=== PATIENT | male | born 1985 ===

== ENCOUNTER 2016-11-03 09:19 | Emergency (ER) | payer SELFPAY ==
[2016-11-03] MEDS ORDERED: KETOROLAC TROMETHAMINE 60 MG/2 ML VIAL IM ONE ×2 (10:44)
--- NOTE | 2016-11-03 10:51 | ERNOTE ---
Medical Problem HPI - Narrative Date of Service: 11/03/16 - General Chief Complaint: General Assessment Time Seen by Provider: 11/03/16 10:30 Source: patient, police, RN notes reviewed Exam Limitations: no limitations - Immun/Allergies/Home Medications Immunizations: IMMUNIZATION HX Immunizations Up to Date Yes History of Influenza Vaccine Yes Hx Pneumococcal Vaccination No Allergies/Adverse Reactions: Allergies No Known Allergies Allergy (Verified 11/03/16 09:32) Home Medications: HOME MEDICATIONS Ibuprofen [Motrin] 600 mg PO Q6H PRN #40 tab 11/03/16 [Last Taken Unknown] traMADol HCL [Ultram] 50 mg PO Q6H PRN #16 tablet 11/03/16 [Last Taken Unknown] - History of Present History Narrative: 31 y/o male to ED in police custody for left rib and left ankle pain. He was arrested for trespassing. He injured his ribs while being put into the squad car. He reports having a left rib fractures approx 8 mos ago, which had gotten better but are now very painful. He injured the ankle while running from the police. He states that it just feels twisted but not broken. He requested that the [facility] officer take him to [facility] because he has had bad experiences here. Review of Systems - Review of Systems Constitutional: Absent: recent illness, fever, chills EYE: Present: no symptoms reported ENT: Present: no symptoms reported Respiratory: Absent: shortness of breath, cough, wheezing Cardiology: Absent: palpitations, syncope Gastrointestinal/Abdominal: Present: no symptoms reported Genitourinary: Present: no symptoms reported Musculoskeletal: Present: back pain, joint pain. Absent: neck pain, joint swelling Skin: Absent: lesions, lumps, change in color Neurological: Absent: weakness, numbness, tingling Endocrine: Present: no symptoms reported Hematologic/Lymphatic: Present: no symptoms reported Psych: Present: no symptoms reported - Patient's Past Medical History Patient History - Medical: No pertinent hx Patient History - Cardiac/Respiratory: No pertinent hx Patient History - Cancer: No Hx of Cancer Patient History - Surgical Procedures: No surgical history Patient History - Other: None - Family History Mother Family History - Medical: No pertinent hx Father Family History - Medical: No pertinent hx - Social History Living Situations: home Abuse History: No History of abuse Psych History: No pertinent hx Smoking Status: Current every day smoker Cigarettes Packs Per Day: 0.5 Do you dip or chew tobacco: No Alcohol Use: none Drug Use: none - Immunizations Immunizations Up to Date: Yes Hx Pneumococcal Vaccination: No History of Influenza Vaccine: Yes Physical Exam - Physical Exam General Appearance: Present: wd/wn, alert, no apparent distress, other - disheveled, in handcuffs Neck: Present: normal inspection, nontender, supple, full range of motion Respiratory: Present: no respiratory distress, normal breath sounds, no accessory muscle use, lungs clear, chest tenderness - left ribs anterior and posterior Cardiovascular/Chest: Present: regular rate, rhythm, no murmur, normal peripheral pulses Peripheral Pulses: N=norm/S=strong/W=weak/B=bound/A=absent: Dorsalis-pedis (R): Strong Extremity Exam: Present: normal range of motion, joint swelling - mild - left lateral ankle, no ecchymosis or deformity, tender to palpation Neurological Exam: Present: alert, oriented, no motor/sensory deficits, other - flat affect, depressed appearing. Absent: normal mood/affect ED Progress - Vital Signs Patient's Vital Signs:: I have reviewed the patient's vital signs. Vital Signs: Vital Signs 11/03/16 09:26 Temperature 36.7 C Pulse Rate 99 Respiratory 16 Rate Blood Pressure 137/77 O2 Sat by Pulse 100 Oximetry - X-Ray X-Ray #1 X-Ray: ankle Interpretation: Reviewed by me X-ray Comments: TECHNIQUE: 3 views of the left ankle. COMPARISONS: None available. Ankle Minimum 3 View LT * No definable fracture lucency or cortical discontinuity. There is a 4 x 6 mm well-corticated ossific fragment seen at the anterior inferior aspect of the lateral malleolus. Joint spaces are in gross normal alignment without subluxation or dislocation. Mild soft tissue swelling noted at the lateral aspect of the ankle. IMPRESSION: 1. Well-corticated ossific fragment near the anterior inferior aspect of the lateral malleolus, probably an old avulsion fracture but correlate clinically for acute injury. 2. Soft tissue swelling over the lateral aspect of the ankle. Electronically signed by Valentin Johnson M.D.. X-Ray #2 X-Ray: ribs Interpretation: Reviewed by me X-ray Comments: TECHNIQUE: 4 views of the Left sided ribs. COMPARISONS: 04/12/2016 Ribs Unilateral LT * Cortical thickening and mineralized callus suggested at the anterolateral aspects of the left seventh, eighth, and ninth ribs suggestive of healing fractures. Visualized portions of the chest grossly normal. IMPRESSION: 1. Healing fractures of the anterolateral left seventh, eighth, ninth ribs. 2. Additional comments are as above. Electronically signed by Valentin Johnson M.D.. - Progress/Reassessment Chief Complaint: General Assessment Progress:: Improved Plan - Plan Plan: Discussed xray results, verbalizes understanding regarding healed rib fractures and bone fragment seen on ankle film - ankle is not tender at the distal malleolus but more so just superior to it. JONATHAN wrap to ankle. Discharged in police custody. Departure - Departure Clinical Impression: Rib pain on left side Mild ankle sprain Qualifiers: Encounter type: initial encounter Laterality: left Qualified Code(s): S93.402A - Sprain of unspecified ligament of left ankle, initial encounter Disposition: Custodial Condition: Stable Instructions: Rib Contusion, Ankle Sprain, [id number] Prescriptions: Ibuprofen [Motrin] 600 mg PO Q6H PRN #40 tab PRN Reason: Pain traMADol HCL [Ultram] 50 mg PO Q6H PRN #16 tablet PRN Reason: Pain
[2016-11-03 11:16] VITALS: BP 113/69
== END 2016-11-03 11:07 ==
LOC: ER 09:19
DX: S93.402A Sprain of unspecified ligament of left ankle, initial encounter (principal); R07.81 Pleurodynia; F17.210 Nicotine dependence, cigarettes, uncomplicated; Y93.02 Activity, running; X50.1XXA Overexertion from prolonged static or awkward postures, initial encounter; Y92.89 Other specified places as the place of occurrence of the external cause